=== PATIENT | female | born 1985 | race Caucasian/White ===

== ENCOUNTER 2017-11-19 14:11 | Emergency (ER) | payer OTHER, SELFPAY ==
[2017-11-19 14:12] VITALS: BP 113/69; PULSE 83; RESP 16; TEMP 36.3; O2SAT 100; BMI 26.6
--- NOTE | 2017-11-19 14:45 | ED.ABDPAIN ---
HPI - Abdominal Pain <GERARDO Mireles - Last Filed: 11/19/17 22:10> General Chief Complaint: Abdominal Pain Stated Complaint: SEVERE ABDOMINAL AND BACK PAIN Time Seen by Provider: 11/19/17 14:53 Source: patient History of Present Illness HPI narrative: 32-year-old female approximately 8 weeks 4 para 2 here for pain to her suprapubic region into her right upper quadrant for the last couple of days. She denies any vaginal bleeding or abnormal vaginal discharge. She does report that she has had some pain at to the right flank area as well. No fevers no chills. Positive p.o. intake. She states her last bowel movement was prior to arrival she denies any diarrhea or constipation. Denies any trauma to the area. She states that she feels like she has had increased urinary frequency and also discomfort with urination. No other concerns or complaints at this time. Related Data Previous Rx's Medication Instructions Recorded cephalexin 500 mg PO Q8H #20 cap 11/19/17 Allergies Allergy/AdvReac Type Severity Reaction Status Date / Time No Known Drug Allergies Allergy Verified 11/19/17 14:20 Review of Systems <GERARDO Mireles - Last Filed: 11/19/17 22:10> Constitutional Denies chills, Denies fatigue, Denies fever(s), Denies lethargy and Denies weakness ENT Ears, Nose, Mouth, and Throat: Denies change in voice, Denies neck pain and Denies sore throat Gastrointestinal Gastrointestinal: Reports abdominal pain, Denies diarrhea, Denies nausea and Denies vomiting Genitourinary Reports dysuria, Reports flank pain, Reports urinary urgency and Reports other Comments: Eight weeks 4 para 2 Musculoskeletal Denies neck pain Neurologic Denies weakness Endocrine Denies fatigue and Denies flushing Hematologic/Lymphatic Denies easy bruising Exam <GERARDO Mireles - Last Filed: 11/19/17 22:10> Const General: cooperative and well developed Nutritional Appearance: well nourished Orientation: alert, awake, oriented x3 and not confused [facility] Mouth: oral mucosae normal, oropharynx normal and moist mucous membranes Eyes General: appearance normal, both eyes and all related structures Eyelids: eyelids normal Conjunctivae: conjunctivae normal Sclera: sclerae normal Pupils: PERRL EOM: EOM intact bilaterally Resp Effort & Inspection: normal respiratory effort, able to speak in complete sentences, no respiratory distress and no use of accessory muscles Auscultation: clear to auscultation bilaterally, no rales, no rhonchi and no wheezes Cardio Rate: regular rate Rhythm: regular rhythm Heart Sounds: no click, no gallops, no murmurs and no rubs GI Inspection: non-distended Palpation: soft, no hepatosplenomegaly, No guarding, No pulsatile mass and tender (Tenderness to suprapubic region to right upper quadrant) Auscultation: normal bowel sounds General: No CVA tenderness Skin General: no rashes or lesions noted, No jaundice and No petechiae [facility] - Abdominal Pain <GERARDO Mireles - Last Filed: 11/19/17 22:10> [facility] Narrative Medical decision making narrative: CBC Chem panel and lipase were obtained were unremarkable. Ultrasound of abdomen was unremarkable. Ultrasound shows intrauterine with healthy heart rate. Urinalysis is indicative of urinary tract infection. She is prescribed Keflex. She is instructed to follow up with the primary care provider later this week for re-evaluation. Plenty of fluids and rest [id number] Tylenol as needed for any discomfort. For any worsening symptoms return to the emergency room. Lab Data Result diagrams: 11/19/17 15:15 11/19/17 15:15 Lab Results 11/19/17 11/19/17 11/19/17 Range/Units 14:20 15:15 15:15 WBC 11.7 H (4.5-11.0) X10^3/uL RBC 3.77 L (4.0-5.2) X10^6/uL Hgb 10.3 L (12.0-16.0) g/dL Hct 30.9 L (36-46) % MCV 82.0 (80-100) fL MCH 27.4 (26-34) PG MCHC 33.4 (30-36) % RDW 15.0 H (11.6-14.8) % Plt Count 253 (150-400) X10^3/uL Neut % (Auto) 69.4 (50-75) % Lymph % (Auto) 18.9 L (25-40) % [place] % (Auto) 10.4 (3-14) % Eos % (Auto) 0.5 L (2-4) % Baso % (Auto) 0.8 (0-2) % Neut # (Auto) 8100 H (3003-7897) /uL Sodium 138 (137-145) mmol/L Potassium 4.2 (3.4-5.1) mmol/L Chloride 102.0 (98-107) mmol/L Carbon Dioxide 24.0 (22-32) mmol/L BUN 10.0 (7-17) mg/dL Creatinine 0.50 L (0.52-1.04) mg/dL Estimated GFR > 60.0 (>60) mL/min BUN/Creatinine Ratio 20.0 (6-22) Glucose 84 (70-100) mg/dL Calcium 9.3 (8.4-10.2) mg/dL Total Bilirubin 0.2 (0.2-1.3) mg/dL AST 19 (14-36) IU/L ALT 22 (9-52) IU/L Alkaline Phosphatase 41 (38-126) U/L Total Protein 7.9 (6.3-8.2) g/dL Albumin 4.3 (3.5-5.0) g/dL Globulin 3.6 (1.7-4.1) g/dL Albumin/Globulin Ratio 1.2 (1.0-2.8) Lipase 69 (23-300) U/L HCG, Quant 16456 mIU/mL Urine RBC 0-1/hpf (0-5/HPF) Urine WBC 10-30/hpf H (0-5/HPF) Ur Squamous Epith Cells 1-5 /hpf Ur Renal Epithelial Cell 0-1/hpf Amorphous Sediment 1+ Urine Bacteria Moderate (10-30) H (None) Urine Mucus 1+ H (Negative) Ur Culture Indicated? Specimen cultured Micro UA Comment Not Reportable <Carlos Borges, DO - Last Filed: 11/20/17 08:55> Lab Data Lab Results 11/19/17 11/19/17 11/19/17 Range/Units 14:20 15:15 15:15 WBC 11.7 H (4.5-11.0) X10^3/uL RBC 3.77 L (4.0-5.2) X10^6/uL Hgb 10.3 L (12.0-16.0) g/dL Hct 30.9 L (36-46) % MCV 82.0 (80-100) fL MCH 27.4 (26-34) PG MCHC 33.4 (30-36) % RDW 15.0 H (11.6-14.8) % Plt Count 253 (150-400) X10^3/uL Neut % (Auto) 69.4 (50-75) % Lymph % (Auto) 18.9 L (25-40) % [place] % (Auto) 10.4 (3-14) % Eos % (Auto) 0.5 L (2-4) % Baso % (Auto) 0.8 (0-2) % Neut # (Auto) 8100 H (6531-7704) /uL Sodium 138 (137-145) mmol/L Potassium 4.2 (3.4-5.1) mmol/L Chloride 102.0 (98-107) mmol/L Carbon Dioxide 24.0 (22-32) mmol/L BUN 10.0 (7-17) mg/dL Creatinine 0.50 L (0.52-1.04) mg/dL Estimated GFR > 60.0 (>60) mL/min BUN/Creatinine Ratio 20.0 (6-22) Glucose 84 (70-100) mg/dL Calcium 9.3 (8.4-10.2) mg/dL Total Bilirubin 0.2 (0.2-1.3) mg/dL AST 19 (14-36) IU/L ALT 22 (9-52) IU/L Alkaline Phosphatase 41 (38-126) U/L Total Protein 7.9 (6.3-8.2) g/dL Albumin 4.3 (3.5-5.0) g/dL Globulin 3.6 (1.7-4.1) g/dL Albumin/Globulin Ratio 1.2 (1.0-2.8) Lipase 69 (23-300) U/L HCG, Quant 69207 mIU/mL Urine RBC 0-1/hpf (0-5/HPF) Urine WBC 10-30/hpf H (0-5/HPF) Ur Squamous Epith Cells 1-5 /hpf Ur Renal Epithelial Cell 0-1/hpf Amorphous Sediment 1+ Urine Bacteria Moderate (10-30) H (None) Urine Mucus 1+ H (Negative) Ur Culture Indicated? Specimen cultured Micro UA Comment Not Reportable Course <GERARDO Mireles - Last Filed: 11/19/17 22:10> Orders Ordered: Discontinued Medications Sodium Chloride (Normal Saline 0.9%) 1,000 mls @ 1,000 mls/hr IV BOLUS ONE Stop: 11/19/17 15:54 Last Vital Signs Temp 97.4 F L 11/19/17 14:12 Pulse 71 11/19/17 16:15 Resp 16 11/19/17 16:15 BP 115/56 L 11/19/17 16:15 Pulse Ox 98 11/19/17 16:15 <Carlos Boregs DO - Last Filed: 11/20/17 08:55> Orders Ordered: Discontinued Medications Sodium Chloride (Normal Saline 0.9%) 1,000 mls @ 1,000 mls/hr IV BOLUS ONE Stop: 11/19/17 15:54 Last Vital Signs Temp 97.4 F L 11/19/17 14:12 Pulse 71 11/19/17 16:15 Resp 16 11/19/17 16:15 BP 115/56 L 11/19/17 16:15 Pulse Ox 98 11/19/17 16:15 Discharge Plan Departure Patient Disposition: Home, Self-Care Clinical Impression: UTI (urinary tract infection) Discharge Date/Time: 11/19/17 16:15 Interventions: ED Discharge Assessment Last Done: 11/19/17 16:15 Activity Restrictions/Additional Instructions: Ultrasound of the abdomen was negative for any acute findings. Ultrasound shows healthy intrauterine or with good healthy heart beat. Laboratory results were unremarkable except for urinalysis was indicates urinary tract infection. Urine prescribed an antibiotic use as directed. Plenty of fluids and rest. Follow up with her primary care provider later this week. For any worsening symptoms return to the emergency room. Use [id number] Tylenol as needed for any discomfort. Prescriptions: New cephalexin 500 mg capsule 500 mg PO Q8H Qty: 20 RF: 0 Referrals: [facility] [Provider Group] <Carlos Borges DO - Last Filed: 11/20/17 08:55> Cosign ED Attending Silvinoature Attestation: I was immediately available in the department for consultation. This documentation has been reviewed and I agree with assessment and plan. Supervised by Carlos Borges DO
--- NOTE | 2017-11-19 14:53 | DI.US.S_ITS ---
PROCEDURE: US ABDOMEN COMPLETE INDICATIONS: PAIN TECHNIQUE: Real-time scanning was performed of the abdominal and retroperitoneal organs, with image documentation. COMPARISON: None. FINDINGS: Liver: Liver is normal in size and homogeneous in echotexture. Gallbladder: The gallbladder wall measures 2.5 mm in thickness. No stones, sludge, pericholecystic fluid, or sonographic Lazcano sign. The gallbladder is mildly contracted. Biliary ducts: Intrahepatic bile ducts are non-dilated. Extrahepatic bile duct caliber measures 3.7 mm. Normal is 6-7 mm or less in diameter, or 10 mm or less post-cholecystectomy. Pancreas: Visualized portions of the pancreas are sonographically normal. Spleen: Spleen is normal in size and homogeneous in echotexture. Kidneys: Kidneys are normal in size and echotexture. Right kidney measures 11.6 cm long; left kidney measures 11.6 cm long. No hydronephrosis or nephrolithiasis. No solid masses. Aorta: Visualized aorta is normal in caliber at less than 3 cm. Iliacs: Proximal common iliac arteries are normal in caliber at less than 2.5 cm. IVC: Intrahepatic inferior vena cava is patent. Miscellaneous: No free abdominal fluid. A single intrauterine gestation is visualized with a heart rate of 163 bpm. IMPRESSION: 1. No findings to suggest cholelithiasis, choledocholithiasis, or acute cholecystitis. 2. Single live intrauterine gestation with a heart rate of 163 bpm. Dictated by: Rochelle Morrell M.D. on 11/19/2017 at 16:06 Approved by: Rochelle Morrell M.D. on 11/19/2017 at 16:07
[2017-11-19 15:01] LABS: RBC Urine 0-1/HPF (0-5/HPF); WBC Urine 10-30/HPF (0-5/HPF)
[2017-11-19 15:02] LABS: Amorphous Sediment Urine 1+; Bacteria Urine Moderate (10-30); Culture Indicated Urine Specimen Cultured; Mucus Urine 1+ (Negative); Renal Epithelial Cells Urine 0-1/HPF; Squamous Epithelial Cell Urine 1-5 /HPF
--- NOTE | 2017-11-19 15:06 | PC.NURSE ---
IV and Fluids ordered. Advised Giovany Reyez WIRE LATHER that pt is taking PO fluids well, Giovany advised we can change order to lab draw and to push fluids. UA sent for micro and pt awaiting U/S. NAD at this time. reports pain is controlled. Currently in room listening to headphones
--- NOTE | 2017-11-19 15:14 | PC.NURSE ---
lab in to draw
[2017-11-19 15:22] LABS: Add Manual Diff / Slide Review NO; Basophils Percent Auto 0.8 % (0-2); Eosinophils Percent Auto 0.5 % (2-4); Hematocrit 30.9 % (36-46); Hemoglobin 10.3 g/dL (12.0-16.0); Lymphocytes Percent Auto 18.9 % (25-40); Mean Corpuscular HGB Conc 33.4 % (30-36); Mean Corpuscular Hemoglobin 27.4 PG (26-34); Monocytes Percent Auto 10.4 % (3-14); Neutrophils Absolute Auto 8100 /uL (3000-5900); Neutrophils Percent Auto 69.4 % (50-75); Platelet Count 253 X10^3/uL (150-400); Red Blood Cell Count 3.77 X10^6/uL (4.0-5.2); White Blood Cell Count 11.7 X10^3/uL (4.5-11.0)
[2017-11-19 15:33] LABS: Alanine Aminotransferase 22 IU/L (9-52); Albumin 4.3 g/dL (3.5-5.0); Albumin Globulin Ratio 1.2 (1.0-2.8); Alkaline Phosphatase 41 U/L (38-126); Aspartate Aminotransferase 19 IU/L (14-36); Bilirubin Total 0.2 mg/dL (0.2-1.3); Calcium 9.3 mg/dL (8.4-10.2); Estimated Glomerular Filt Rate > 60.0 mL/min (>60); Globulin 3.6 g/dL (1.7-4.1); Glucose 84 mg/dL (70-100); HEMOLYSIS < 15 (0-50); Lipase 69 U/L (23-300); Potassium 4.2 mmol/L (3.4-5.1); Sodium 138 mmol/L (137-145); Total Protein 7.9 g/dL (6.3-8.2)
--- NOTE | 2017-11-19 15:55 | PC.NURSE ---
u/s complete. given more water to drink. pt OOB to BR multiple times. NAD
[2017-11-19 16:15] VITALS: BP 115/56; PULSE 71; RESP 16; O2SAT 98
[2017-11-28 16:42] LABS: HCG Quantitative /Beta subunit 75708 mIU/mL
== END 2017-11-19 16:15 | disposition home or self-care (01) ==
PROVIDERS: Emergency Provider Nurse Practitioner Family
DX: N39.0 Urinary tract infection, site not specified (principal)
CPT/HCPCS: 36415; 76700; 80053; 81003; 81015; 81025; 83690; 84702; 85025; 87086; 99283; 99284